=== PATIENT | male | born 1950 | race Caucasian/White ===

== ENCOUNTER 2017-03-10 09:10 | Observation (INO) ==
[2017-03-10] MEDS ORDERED: Aspirin 81 MG TAB.CHEW PO ONE (09:21)
[2017-03-10 09:47] LABS: Basophils # 0.1 K/mcL (0.0-0.2); Basophils % 1.7 %; Eosinophils # 0.7 K/mcL (0.0-0.6); Eosinophils % 9.2 %; Hematocrit 44.9 % (37.5-50.1); Hemoglobin 14.4 g/dL (12.9-16.9); Immature Granulocytes % 0.7 % (0-4); Lymphocytes # 2.1 K/mcL (0.6-4.6); Mean Corpuscular HGB Conc 32.1 g/dL (31.6-35.5); Mean Corpuscular Hemoglobin 27.4 pg (28.0-33.3); Mean Corpuscular Volume 85.5 fL (83.0-100.0); Mean Platelet Volume 8.8 fL (9.4-12.4); Monocytes # 0.5 K/mcL (0.0-1.3); Monocytes % 7.5 %; Neutrophils # 3.7 K/mcL (1.6-8.9); Platelet Count 238 K/mcL (140-400); Red Blood Count 5.25 M/mcL (4.19-5.50); Segmented Neutrophils % 51.9 %
--- NOTE | 2017-03-10 09:49 | Emergency Department Note ---
Disposition Clinical Impression: Unstable angina pectoris Chest pain Qualifiers: Chest pain type: unspecified Qualified Code(s): R07.9 - Chest pain, unspecified Disposition: Admitted As Inpatient Condition: Fair Time of Disposition: : Chest Pain HPI - General Chief Complaint: ED Chest Pain Stated Complaint: C/P Time Seen by Provider: 03/10/17 09:13 Source: patient Mode of arrival: ambulatory Limitations: no limitations Vital Signs Reviewed: Yes Nursing Notes Reviewed: Yes - History of Present Illness HPI Narrative: 67-year-old male presents the ED complaining of chest pain. He states he woke up at approximately 4 AM with this chest pain. He says is minimal left-sided his chest but nonradiating. He says is about a 6 out of 10. Prior to arrival states that the chest pain did go away. He is no longer having chest pain currently in the emergency department. Patient has had a cardiac stent placed in 2011 states when this occurred he was not having chest pain. Having the chest pain really worried on the toilet came in. Patient is a history of hypertension, high cholesterol, hyperlipidemia, diabetes, COPD. Patient is always on 4 L of oxygen and does have a CPAP at home. Patient states he has not had increased shortness of breath or any leg swelling or pain in the legs. He does not have history of DVTs. He is on Plavix. He has had no long car rides or plane rides. No recent surgery or malignancy. Patient states he has been sick to his stomach for the last couple days was had no vomiting. He currently does not have any nausea. He complains of no headache, blurry vision , abnormal shortness of breath, abdominal pain, pain with urination or change in bowel movements. He has no pain or tingling noted on the arms or legs or any numbness. Patient states she has had no fevers. Patient otherwise has no complaints Severity scale (1-10): 0 - Related Data Home Medications Medication Instructions Recorded Confirmed Aspirin [Adult Low Dose Aspirin EC] 81 mg PO DAILY 06/25/15 03/10/17 Cetirizine HCl [Zyrtec] 10 mg PO DAILY 06/25/15 03/10/17 Clopidogrel [Plavix] 75 mg PO DAILY 06/25/15 03/10/17 Doxepin [Sinequan] 25 mg PO HS 06/25/15 03/10/17 Ferrous Sulfate 325 mg PO BID 06/25/15 03/10/17 Melatonin/Pyridoxine HCl (B6) 3 mg PO HS 06/25/15 03/10/17 [Melatonin 3 mg Tablet] Metoprolol Tartrate [Lopressor] 25 mg PO BID 06/25/15 03/10/17 Paroxetine [Paxil] 40 mg PO QAM 06/25/15 03/10/17 Ranitidine HCl [Zantac] 150 mg PO DAILY 06/25/15 03/10/17 Simvastatin [Zocor] 40 mg PO QPM 06/25/15 03/10/17 Tizanidine HCl [Zanaflex] 4 mg PO TID 06/25/15 03/10/17 metFORMIN [Glucophage] 1,000 mg PO BID 06/25/15 03/10/17 Gabapentin [Neurontin] 300 mg PO TID 03/10/17 03/10/17 Glimepiride [Amaryl] 1 mg PO DAILY 03/10/17 03/10/17 Isosorbide MONOnitrate (24 HR) 30 mg PO DAILY 03/10/17 03/10/17 [Imdur] Naproxen [Naprosyn] 250 mg PO BID 03/10/17 03/10/17 Oxygen 4 l .ROUTE AD 03/10/17 03/10/17 rOPINIRole [Requip] 1.5 mg PO HS 03/10/17 03/10/17 Previous Rx's Medication Instructions Recorded Albuterol Sulfate [Albuterol 2 puff IH QID 2 Days inhaler 02/26/16 Inhaler] Allergies Allergy/AdvReac Type Severity Reaction Status Date / Time No Known Allergies Allergy Verified 05/29/15 11:15 Review of Systems: 10 point review of systems done and negative unless otherwise stated in history of present illness. All systems ED: reviewed and negative except as stated. Review of Systems: As Per HPI Chest Pain PMH - Past Medical History Medical history: Reports: COPD, diabetes, hyperlipidemia, hypertension, myocardial infarction, peripheral artery disease Surgical history: Reports: angioplasty/stent, LE stent(s), LE vascular intervention, orthopedic, other, other Psychiatric history: Reports: anxiety - Social History Smoking Status: Never smoker Alcohol use: Reports: none Drug use: Reports: none Physical Exam - General Limitations: no limitations General appearance: alert, in no apparent distress - Head Head exam: atraumatic, normocephalic, normal inspection - Eye Eye exam: Present: normal appearance, PERRL, EOMI - ENT ENT exam: normal exam, normal oropharynx, mucous membranes moist - Neck Neck exam: Present: normal inspection, full ROM, trachea midline - Chest Chest inspection: Present: normal inspection, symmetric chest wall rise - Respiratory Respiratory exam: Present: normal lung sounds bilaterally - Cardiovascular Cardiovascular exam: Present: regular rate, normal rhythm, normal heart sounds. Absent: JVD - Abdominal Exam Abdominal exam: Present: soft, Non-Tender, normal bowel sounds. Absent: distention, guarding, rebound, rigidity - Extremities Exam Extremities exam: Present: normal inspection, full ROM, normal capillary refill. Absent: tenderness, pedal edema, calf tenderness - Back Exam Back exam: Present: normal inspection, full ROM. Absent: tenderness, CVA tenderness (R), CVA tenderness (L) - Neurological Exam Neurological exam: Present: alert, oriented X3 - Skin Skin exam: Present: warm, dry, intact, normal color Course Course Narrative: 67-year-old male presents to the ED with chest pain. Patient does have risk factors and known acute coronary disease with multi vessel disease form a catheterization done in 2015. We will do normal chest pain workup including CBC , BMP, coags, troponin. We will also get a chest x-ray and EKG. Patient took a baby aspirin prior to arrival so we will give him the rest of the full dose aspirin here today. He is not having chest pains will forego giving nitroglycerin at this time. We will place an IV. Most likely disposition will be admission. Patient is okay with this plan. Vital Signs Temperature 97.6 F 03/10/17 09:15 Pulse Rate 62 03/10/17 09:15 Respiratory Rate 18 03/10/17 09:15 Blood Pressure 142/98 03/10/17 09:15 O2 Sat by Pulse Oximetry 96 03/10/17 09:15 Temperature 97.6 F 03/10/17 09:15 Pulse Rate 62 03/10/17 09:15 Respiratory Rate 16 03/10/17 10:53 Blood Pressure 146/89 03/10/17 10:53 O2 Sat by Pulse Oximetry 97 03/10/17 09:24 Oxygen Delivery Oxygen Delivery Nasal Cannula Chest Pain - MDM Narrative Medical decision making narrative: 67-year-old male with chest pain and history of ACS had a stent in 2012 and a cardiac catheterization with no stent placed in 2015. There was noticeable 30- 40% blockages based on that report. Patient does have chest pain today but did not have anemia in the emergency department. He is on Plavix. There was no signs of pulmonary embolism or DVT with no risk factors. He does have a history of COPD and is always on 4 L of oxygen via nasal cannula. He states he has no shortness of breath no changes in that. He does not have pain radiating to the arms or any nausea or vomiting. It is only located in the chest that has since gone away. We did give him a full dose aspirin while here. He was not having chest pain so we did not give him any nitroglycerin. With patient's known cardiac disease we felt that he warranted admission for a cardiac evaluation. Basic lab work do not show any abnormalities he did have a negative troponin. Chest x-ray was normal showing no acute findings. His EKG also had no acute findings. There was signs of an old myocardial infarction and inferior which is known. This is also on the old EKG. Spoke with the hospitalist Dr. Anaya who agreed to accept the patient. Patient is being admitted for cardiac evaluation a chest pain workup. Patient is admitted to hospital service in stable condition. - Medical Records Medical records reviewed: Yes I reviewed the patient's medical records. - Lab Data Lab results reviewed: Yes I reviewed the patient's lab results. Result diagrams: 03/10/17 09:34 03/10/17 09:34 Lab Results 03/10/17 03/10/17 03/10/17 Range/Units 09:34 09:34 09:34 WBC 7.1 (4.3-11.1) K/mcL RBC 5.25 (4.19-5.50) M/mcL Hgb 14.4 (12.9-16.9) g/dL Hct 44.9 (37.5-50.1) % MCV 85.5 (83.0-100.0) fL MCH 27.4 L (28.0-33.3) pg MCHC 32.1 (31.6-35.5) g/dL RDW 14.0 (11.5-14.5) % Plt Count 238 (140-400) K/mcL MPV 8.8 L (9.4-12.4) fL Immature Gran % 0.7 (0-4) % Seg Neutrophils % 51.9 % Lymphocytes % 29.0 % Monocytes % 7.5 % Eosinophils % 9.2 % Basophils % 1.7 % Neutrophils # 3.7 (1.6-8.9) K/mcL Lymphocytes # 2.1 (0.6-4.6) K/mcL Monocytes # 0.5 (0.0-1.3) K/mcL Eosinophils # 0.7 H (0.0-0.6) K/mcL Basophils # 0.1 (0.0-0.2) K/mcL PT 11.4 (9.4-12.1) Seconds INR 1.1 APTT 31.4 (26.0-36.0) Seconds Sodium (136-145) mEq/L Potassium (3.5-4.5) mEq/L Chloride (98-109) mEq/L Carbon Dioxide (19-29) mEq/L BUN (8-26) mg/dL Creatinine (0.72-1.25) mg/dL Est GFR ( Amer) (> 60) Est GFR (Non-Af Amer) (> 60) BUN/Creatinine Ratio (6-26) Glucose (70-99) mg/dL Calculated Osmolality (280-300) Calcium (8.6-10.8) mg/dL Troponin I (0-0.03) ng/mL B-Natriuretic Peptide 27 (0-100) pg/mL 03/10/17 03/10/17 Range/Units 09:34 09:34 WBC (4.3-11.1) K/mcL RBC (4.19-5.50) M/mcL Hgb (12.9-16.9) g/dL Hct (37.5-50.1) % MCV (83.0-100.0) fL MCH (28.0-33.3) pg MCHC (31.6-35.5) g/dL RDW (11.5-14.5) % Plt Count (140-400) K/mcL MPV (9.4-12.4) fL Immature Gran % (0-4) % Seg Neutrophils % % Lymphocytes % % Monocytes % % Eosinophils % % Basophils % % Neutrophils # (1.6-8.9) K/mcL Lymphocytes # (0.6-4.6) K/mcL Monocytes # (0.0-1.3) K/mcL Eosinophils # (0.0-0.6) K/mcL Basophils # (0.0-0.2) K/mcL PT (9.4-12.1) Seconds INR APTT (26.0-36.0) Seconds Sodium 139 (136-145) mEq/L Potassium 4.3 (3.5-4.5) mEq/L Chloride 103 (98-109) mEq/L Carbon Dioxide 28 (19-29) mEq/L BUN 10 (8-26) mg/dL Creatinine 0.92 (0.72-1.25) mg/dL Est GFR ( Amer) > 60 (> 60) Est GFR (Non-Af Amer) > 60 (> 60) BUN/Creatinine Ratio 11 (6-26) Glucose 102 H (70-99) mg/dL Calculated Osmolality 287 (280-300) Calcium 9.3 (8.6-10.8) mg/dL Troponin I 0.01 (0-0.03) ng/mL B-Natriuretic Peptide (0-100) pg/mL - Radiology Data Radiology results reviewed: Yes I reviewed the patient's radiology results. - EKG Data EKG attestation: Yes I reviewed and interpreted this EKG. EKG results narrative: EKG done at 01 14 review myself and the attending shows normal sinus rhythm at a rate of 60, TN interval 181, QRS 92, QTC 426 with a normal axis. There are Q waves in leads 23 and aVF of note from his prior inferior UT he had in 2011 that are no acute ST changes, no acute T-wave changes. No signs of any hypertrophy or heart strain. No signs of any heart block. No signs of WPW/ Brugada syndrome. This compared with an old EKG done 06/25/16 shows normal sinus rhythm with no acute changes he did also have the Q waves in II, III, and F aVF and this EKG as well. Heart Score - Score History: Moderately Suspicious EKG: Normal Age: 45-65 Risk Factors: Equal/Greater than 3 risk factor or history of atherosclerotic disease Troponin: Less than normal limit HEART Score Total: 4 Attestation Statement - Attestation Attestation: I examined this patient and my medical decision-making was reviewed with the Resident Physician, Dr. Low. I agree with the documented findings, disposition and treatment plan as described except to the extent set forth below. History this 67-year-old white male with a history of known CAD, last heart catheter was in 2014 in which she had multivessel disease but no acute intervention was performed. Patient presents today brought by his to the emergency department for chest pain that began when he awoke today around 4 AM. Patient's pain was left-sided nonradiating with no associated symptoms and lasted for approximately 5 hours and then spontaneously resolved. When asking the patient if he has been feeling okay he states yes and then his shakes her head no when states that over the past 7-10 days he has been having an increase in productive cough with change in sputum, intermittent fevers and chills associated with diaphoresis. Patient denies any episodes of chest pain pressure or heaviness during the spells over the past 7-10 days and insists this morning's episode was the first experience of any chest pain. Patient denies any lightheadedness or syncope. No increased work of breathing this morning on initial assessment patient's on 2 L nasal cannula oxygen and in no acute distress no signs of respiratory distress or increased work of breathing. Sats are 96%. Patient does not feel that he has been utilizing his inhalers more frequently or requiring increased oxygen at home. Patient has had no posttussive emesis or nausea vomiting associated with these symptoms. The patient's physical exam he did have faint end expiratory wheezing in the bases on auscultation. No lower examinee edema. I agree with the remainder of physical exam as documented by Dr. Low. Since vital signs are stable on arrival. He was placed on bus monitor continuous pulse ox labs are drawn and sent portal chest x-ray was obtained and EKG was performed. EKG shows old inferior changes but nothing acute today with a normal sinus rhythm. Patient is pain-free at this time and will receive aspirin therapy. Labs at this time are pending chest x-ray is unremarkable and is negative for any infiltrates or evidence of edema. Plan at this time will be to admit the patient for unstable angina for further evaluation and management. Case will be discussed with the hospitalist upon completion of laboratory values. Patient's labs are all within normal limits. He remains chest pain-free with stable vital signs at this time. Case was discussed with the hospitalist who accepted the patient for admission for further evaluation and management.
[2017-03-10 09:51] LABS: INR 1.1; Prothrombin Time 11.4 Seconds (9.4-12.1)
[2017-03-10 09:54] LABS: Activated Partial Thrombo Time 31.4 Seconds (26.0-36.0)
[2017-03-10 10:00] LABS: BUN/Creatinine Ratio 11 (6-26); Blood Urea Nitrogen 10 mg/dL (8-26); Calcium 9.3 mg/dL (8.6-10.8); Carbon Dioxide 28 mEq/L (19-29); Chloride 103 mEq/L (98-109); Glucose 102 mg/dL (70-99); Osmolality,Calculated 287 (280-300); Potassium 4.3 mEq/L (3.5-4.5); Sodium 139 mEq/L (136-145); eGFR For African Americans > 60 (> 60); eGFR For Non-African Americans > 60 (> 60)
--- NOTE | 2017-03-10 10:52 | Internal Med History&Physical ---
Date of Encounter: 03/10/17 Time of Encounter: 10:50 Assessment and Plan (1) Chest pain Current visit: No Status: Acute 67/male Admitted with typical anginal chest pain. Heart score: 4 Previous history of stent in 2009. Plan: Admit as observation. Aspirin, simvastatin, Plavix, isosorbide dinitrate, metoprolol Echocardiogram Serial troponins. If the serial troponins are negative and echocardiogram is within normal limits then please consider pharmacological stress test. At the time of examination patient is chest pain-free I examined this patient in the emergency room #22. Patient's is at bedside. I have answered all of their questions during my conversation with them. Patient or his does not have any questions, concerns, update or recommendation at the time of completion of my interview. Qualifiers: Chest pain type: unspecified Qualified Code(s): R07.9 - Chest pain, unspecified (2) Diabetes Current visit: No Status: Acute sub cut insulin set Qualifiers: Diabetes mellitus type: type 2 Diabetes mellitus complication status: without complication Diabetes mellitus manager long term care insulin use: unspecified senior care insulin use status Qualified Code(s): E11.9 - Type 2 diabetes mellitus without complications (3) Dyslipidemia Current visit: No Status: Chronic on statin (4) DVT prophylaxis Current visit: No Status: Acute Heparin Medical decision making: This patient has a [id number] risk of persistent in spite of being on appropriate medication due to the underlying complex comorbid conditions. Internal Medicine - H&P: HPI Chief complaint: Chest pain Admitted From: Emergency Dept Plans for Post Hospital Care: Home History of present illness: PCP: Dr. Guthrie from [facility]. Cardiology: Dr. Alex Figueroa. Brief past medical history: Diabetes, hypertension, dyslipidemia, coronary artery disease, peripheral artery disease, mild obesity. History of present medical illness: Patient was experiencing excruciating chest pain around 1 AM this morning. The pain started at the left precordial region it was radiating to the left arm and it was sharp in nature. Patient feels that there was a pressure-like sensation which was ongoing for last 3 days. Patient's was concerned for his symptoms and she decided to bring patient to the hospital for further evaluation. Patient also had occasional nausea. Patient denies any shortness of breath, abdominal pain, dizziness and diarrhea or constipation. Workup in the emergency department: Patient was evaluated in the emergency department. He underwent basic lab draw. Chest x-ray was done. First set of troponin was negative. EKG was within normal limits. Reason for admission: Heart score 4. Chest pain to rule out ACS. Family history: Noncontributory Past Med Surg Social Fam HX - Past Medical History Medical history: COPD, diabetes, hyperlipidemia, hypertension, myocardial infarction, peripheral artery disease Psychiatric history: anxiety - Past Surgical History Surgical History: angioplasty/stent, LE stent(s), LE vascular intervention, orthopedic, other, other - Social History Smoking Status: Never smoker Smokeless Tobacco Status: No Alcohol use: none Drug use: none - Family History Mother Family Member Ethnicity: Non- Hx Family Endocrine Disorder: Yes (Diabeties) Internal Medicine - H&P: Meds Aspirin [Adult Low Dose Aspirin EC] 81 mg PO DAILY 06/25/15 [History] Cetirizine HCl [Zyrtec] 10 mg PO DAILY 06/25/15 [History] Clopidogrel [Plavix] 75 mg PO DAILY 06/25/15 [History] Doxepin [Sinequan] 25 mg PO HS 06/25/15 [History] Ferrous Sulfate 325 mg PO BID 06/25/15 [History] Melatonin/Pyridoxine HCl (B6) [Melatonin 3 mg Tablet] 3 mg PO HS 06/25/15 [ History] Metoprolol Tartrate [Lopressor] 25 mg PO BID 06/25/15 [History] Paroxetine [Paxil] 40 mg PO QAM 06/25/15 [History] Ranitidine HCl [Zantac] 150 mg PO DAILY 06/25/15 [History] Simvastatin [Zocor] 40 mg PO QPM 06/25/15 [History] Tizanidine HCl [Zanaflex] 4 mg PO TID 06/25/15 [History] metFORMIN [Glucophage] 1,000 mg PO BID 06/25/15 [History] Albuterol Sulfate [Albuterol Inhaler] 2 puff IH QID 2 Days inhaler 02/26/16 [Rx ] Gabapentin [Neurontin] 300 mg PO TID 03/10/17 [History] Glimepiride [Amaryl] 1 mg PO DAILY 03/10/17 [History] Isosorbide MONOnitrate (24 HR) [Imdur] 30 mg PO DAILY 03/10/17 [History] Naproxen [Naprosyn] 250 mg PO BID 03/10/17 [History] Oxygen 4 l .ROUTE AD 03/10/17 [History] rOPINIRole [Requip] 1.5 mg PO HS 03/10/17 [History] 3 Allergy/AdvReac Type Severity Reaction Status Date / Time No Known Allergies Allergy Verified 05/29/15 11:15 All Systems PM: A 10-system review of systems was performed and is negative for pertinent findings except as documented above in the HPI. - Constitutional Constitutional: no chills, no fever(s), no night sweats - EENT Eyes: no change in vision, no discharge, no pain, no photophobia Ears: no ear discharge, no ear pain, no tinnitus Nose, mouth and throat: no dysphagia, no nasal discharge, no neck pain, no sore throat - Cardiovascular Cardiovascular ROS IM: chest pain, diaphoresis, lightheadedness, no dyspnea, no palpitations, no syncope - Respiratory Respiratory: no cough, no dyspnea, no wheezing, no excessive phlegm production - Gastrointestinal Gastrointestinal: no abdominal pain, no diarrhea, no hematemesis, no hematochezia, no melena, no nausea, no vomiting - Musculoskeletal Musculoskeletal ROS IM: no numbness, no tingling - Integumentary Integumentary IM: no rash, no unusual bruising - Neurological Neurological ROS: no confusion, no convulsions, no focal weakness, no numbness, no tingling, no tremor(s) - Hematologic/Lymphatic Hematologic/Lymphatic: no easy bruising - Constitutional Vitals: Temp Pulse Resp BP Pulse Ox 97.6 F 62 18 142/98 97 03/10/17 09:15 03/10/17 09:15 03/10/17 09:15 03/10/17 09:15 03/10/17 09:24 General appearance: Present: A&O X 3, pleasant, no acute distress, answers questions appropriately - Head Head exam: Present: atraumatic, normocephalic - Eye Eye exam: Present: PERRL, conjuntiva pink, sclera anicteric Pupils: Present: PERRL - Neck Neck exam general surgery: Present: supple, trachea midline. Absent: lymphadenopathy - Respiratory Respiratory exam: Present: CTAB. Absent: accessory muscle use, rales, rhonchi, wheezes - Cardiovascular Cardiovascular exam: Present: RRR, +S1, +S2. Absent: diastolic murmur, gallop, rubs, systolic murmur - GI/Abdominal GI/Abdominal exam: Present: normal bowel sounds, soft, no peritoneal signs. Absent: distended, tenderness - Extremities Exam Extremities exam: Present: warm, radial pulses palpable and symmetrical. Absent : calf tenderness, cyanotic, pedal edema - Neurological Exam Neurological exam: Present: CN II-XII intact, oriented X3, no focal deficits. Absent: pronater drift, facial droop, speech deficit - Skin Skin exam: Present: dry, intact Internal Med - H&P Results - Labs CBC & Chem 7: 03/10/17 09:34 03/10/17 09:34
[2017-03-10] MEDS ORDERED: Acetaminophen 325 MG TABLET PO PRN (10:53)
[2017-03-10] MEDS ORDERED: Naloxone 0.4 MG/ML INJ IVP PRN (10:53)
[2017-03-10] MEDS ORDERED: Mag Hydrox/Al Hydrox/Simeth 30 ML UDC PO PRN (10:53)
[2017-03-10] MEDS ORDERED: NON-FORMULARY MEDICATION 1 EACH EACH (Oxygen [Oxygen] 4 L) SCH (11:00)
[2017-03-10] MEDS ORDERED: D5% in Water 1,000 ML IVC PRN (11:10)
[2017-03-10] MEDS ORDERED: Dextrose Gel 15 GM PO PRN ×2 (11:10)
[2017-03-10] MEDS ORDERED: *HR* Dextrose 50 % in Water (Syg) 50 ML SYRINGE IVP PRN (11:10)
[2017-03-10] MEDS: Insulin LISPRO 300 UNITS/3 ML VIAL SQ SCH ×3 (13:06→20:46)
[2017-03-10] MEDS: Gabapentin 300 MG CAPSULE PO SCH ×2 (15:28→20:50)
[2017-03-10] MEDS: tiZANidine 4 MG TABLET PO SCH ×2 (15:28→20:49)
[2017-03-10] MEDS: rOPINIRole 1 MG TABLET PO SCH (20:49)
[2017-03-10] MEDS ORDERED: Insulin LISPRO 300 UNITS/3 ML VIAL SQ SCH (21:00)
[2017-03-11 04:11] LABS: Basophils # 0.1 K/mcL (0.0-0.2); Basophils % 1.6 %; Eosinophils # 0.5 K/mcL (0.0-0.6); Eosinophils % 8.1 %; Hematocrit 41.1 % (37.5-50.1); Hemoglobin 13.1 g/dL (12.9-16.9); Immature Granulocytes % 0.6 % (0-4); Lymphocytes # 2.1 K/mcL (0.6-4.6); Lymphocytes % 33.6 %; Mean Corpuscular HGB Conc 31.9 g/dL (31.6-35.5); Mean Corpuscular Volume 84.7 fL (83.0-100.0); Mean Platelet Volume 8.7 fL (9.4-12.4); Monocytes # 0.6 K/mcL (0.0-1.3); Monocytes % 8.7 %; Platelet Count 194 K/mcL (140-400); Red Blood Count 4.85 M/mcL (4.19-5.50); Red Cell Distribution Width 13.9 % (11.5-14.5); Segmented Neutrophils % 47.4 %
[2017-03-11 04:20] LABS: INR 1.1; Prothrombin Time 11.8 Seconds (9.4-12.1)
[2017-03-11 04:22] LABS: Activated Partial Thrombo Time 28.8 Seconds (26.0-36.0)
[2017-03-11 04:36] LABS: Alanine Aminotransferase 38 Units/L (0-55); Albumin 3.2 g/dL (3.5-5.0); Albumin/Globulin Ratio 0.9 (1.1-2.2); Alkaline Phosphatase 62 Units/L (38-126); Aspartate Amino Transferase 44 Units/L (5-34); BUN/Creatinine Ratio 12 (6-26); Bilirubin,Total 0.8 mg/dL (0.2-1.2); Blood Urea Nitrogen 13 mg/dL (8-26); Calcium 9.3 mg/dL (8.6-10.8); Carbon Dioxide 28 mEq/L (19-29); Chloride 102 mEq/L (98-109); Chol/HDL Ratio 4.6 (0-4.9); Cholesterol 125 mg/dL (< 200); Globulin 3.4 g/dL (2.4-3.5); Glucose 124 mg/dL (70-99); HDL Cholesterol 27 mg/dL (40-59); LDL Cholesterol,Calculated 63 mg/dL (0-99); Magnesium 2.1 mg/dL (1.6-2.6); Osmolality,Calculated 286 (280-300); Phosphorous 3.5 mg/dL (2.3-4.7); Potassium 4.3 mEq/L (3.5-4.5); Sodium 137 mEq/L (136-145); Total Protein 6.6 g/dL (6.0-8.3); Triglycerides 174 mg/dL (< 150); eGFR For African Americans > 60 (> 60); eGFR For Non-African Americans > 60 (> 60)
[2017-03-11] MEDS: Insulin LISPRO 300 UNITS/3 ML VIAL SQ SCH ×4 (08:08→22:23)
[2017-03-11] MEDS: Aspirin Enteric Coated 81 MG Tablet PO SCH (10:30)
[2017-03-11] MEDS: *HR* Glimepiride 2 MG TABLET PO SCH (10:30)
[2017-03-11] MEDS: tiZANidine 4 MG TABLET PO SCH ×3 (10:30→22:25)
[2017-03-11] MEDS: Gabapentin 300 MG CAPSULE PO SCH ×3 (10:31→22:25)
[2017-03-11] MEDS: Isosorbide MONOnitrate (24 HR) 30 MG TAB.ER.24H PO SCH (10:31)
--- NOTE | 2017-03-11 14:55 | Internal Med Progress Note ---
Date of Encounter: 03/11/17 Time of Encounter: 14:53 - Assessment and plan (1) Chest pain Current Visit: Yes Status: Acute Qualifiers: Chest pain type: unspecified Qualified Code(s): R07.9 - Chest pain, unspecified (2) Hypertension Current Visit: Yes Status: Acute Qualifiers: Hypertension type: essential hypertension Qualified Code(s): I10 - Essential (primary) hypertension (3) Coronary artery disease Current Visit: Yes Status: Acute Qualifiers: Coronary Disease-Associated Artery/Lesion type: [place] artery [place] vs. transplanted heart: [place] heart Associated angina: with stable angina Qualified Code(s): I25.118 - Atherosclerotic heart disease of [place] coronary artery with other forms of angina pectoris (4) Diabetes Current Visit: Yes Status: Acute Qualifiers: Diabetes mellitus type: type 2 Diabetes mellitus complication status: without complication Diabetes mellitus penitentiary insulin use: unspecified penitentiary insulin use status Qualified Code(s): E11.9 - Type 2 diabetes mellitus without complications (5) Dyslipidemia Current Visit: No Status: Chronic - Subjective Interval history: Admitted for chest pain which lasted for 20 minutes and resolved with rest. Patient has history of coronary artery disease PTCA in the past as well as her for vascular disease with stents. Patient is diabetic with history of hypertension dyslipidemia and COPD. Patient has been ruled out for [place] with a negative cardiac enzymes. Considering risk factors and presence of previous coronary artery disease and also due to the fact that for last several years patient did not have any stress test or cardiac catheter will schedule him for a stress test for risk stratification. Lipid profile reviewed as well as labs. Patient is hemodynamically stable. She does currently on beta massiel and aspirin. Accu-Chek 4 times a day with sliding scale coverage on daily basis and resume home medication. - Constitutional Vitals: Temp Pulse Resp BP Pulse Ox 97.6 F 66 16 134/83 92 03/11/17 07:05 03/11/17 11:26 03/11/17 11:26 03/11/17 11:26 03/11/17 11:26 General appearance: Present: A&O X 3, pleasant, no acute distress, answers questions appropriately - Head Head exam: Present: atraumatic, normocephalic - Eye Eye exam: Present: PERRL, conjuntiva pink, sclera anicteric Pupils: Present: PERRL - Neck Neck exam general surgery: Present: supple, trachea midline. Absent: lymphadenopathy - Respiratory Respiratory exam: Present: CTAB. Absent: accessory muscle use, rales, rhonchi, wheezes - Cardiovascular Cardiovascular exam: Present: RRR, +S1, +S2. Absent: diastolic murmur, gallop, rubs, systolic murmur - GI/Abdominal GI/Abdominal exam: Present: normal bowel sounds, soft, no peritoneal signs. Absent: distended, tenderness - Extremities Exam Extremities exam: Present: warm, radial pulses palpable and symmetrical. Absent : calf tenderness, cyanotic, pedal edema - Neurological Exam Neurological exam: Present: CN II-XII intact, oriented X3, no focal deficits. Absent: pronater drift, facial droop, speech deficit - Skin Skin exam: Present: dry, intact Internal Medicine: Result - Labs CBC & Chem 7: 03/11/17 03:57 03/11/17 03:57 Labs: Short CBC 03/11/17 Range/Units 03:57 WBC 6.3 (4.3-11.1) K/mcL Hgb 13.1 (12.9-16.9) g/dL Hct 41.1 (37.5-50.1) % Plt Count 194 (140-400) K/mcL Neutrophils # 3.0 (1.6-8.9) K/mcL BMP 03/11/17 03:57 Sodium 137 Potassium 4.3 Chloride 102 Carbon Dioxide 28 BUN 13 Creatinine 1.10 Glucose 124 H Calcium 9.3 Cardiac Enzymes 03/10/17 03/10/17 03/11/17 Range/Units 15:53 21:21 03:57 Troponin I 0.01 0.00 0.01 (0-0.03) ng/mL Liver Function 03/11/17 Range/Units 03:57 Total Bilirubin 0.8 (0.2-1.2) mg/dL AST 44 H (5-34) Units/L ALT 38 (0-55) Units/L Alkaline Phosphatase 62 (38-126) Units/L Albumin 3.2 L (3.5-5.0) g/dL - ABG Interpretation ABG results: PT/INR, D-dimer PT 11.8 Seconds (9.4-12.1) 03/11/17 03:57 Consult Discharge Plan - Plan [facility] [place] -
--- NOTE | 2017-03-11 17:58 | Electrocardiograph Report ---
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
[2017-03-11] MEDS: rOPINIRole 1 MG TABLET PO SCH (22:25)
--- NOTE | 2017-03-12 07:33 | Discharge Summary ---
Date of Encounter: 03/12/17 Time of Encounter: 07:25 - Discharge Diagnosis (1) Chest pain Priority: Primary Status: Acute Qualifiers: Chest pain type: unspecified Qualified Code(s): R07.9 - Chest pain, unspecified (2) Hypertension Priority: Secondary Status: Acute Qualifiers: Hypertension type: essential hypertension Qualified Code(s): I10 - Essential (primary) hypertension (3) Coronary artery disease Priority: Secondary Status: Acute Qualifiers: Coronary Disease-Associated Artery/Lesion type: [place] artery [place] vs. 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 prison insulin use status Qualified Code(s): E11.9 - Type 2 diabetes mellitus without complications (5) Dyslipidemia Priority: Secondary Status: Chronic - Discharge Medications Prescriptions: Nitroglycerin 0.4 mg SL Q5MIN PRN #40 tab.subl PRN Reason: Chest Pain Omeprazole Magnesium [Prilosec Otc] 20 mg PO DAILY #30 tablet.dr Home Medications: Aspirin [Adult Low Dose Aspirin EC] 81 mg PO DAILY 06/25/15 [History] Cetirizine HCl [Zyrtec] 10 mg PO DAILY 06/25/15 [History] Clopidogrel [Plavix] 75 mg PO DAILY 06/25/15 [History] Doxepin [Sinequan] 25 mg PO HS 06/25/15 [History] Ferrous Sulfate 325 mg PO BID 06/25/15 [History] Melatonin/Pyridoxine HCl (B6) [Melatonin 3 mg Tablet] 3 mg PO HS 06/25/15 [ History] Metoprolol Tartrate [Lopressor] 25 mg PO BID 06/25/15 [History] Paroxetine [Paxil] 40 mg PO QAM 06/25/15 [History] Simvastatin [Zocor] 40 mg PO QPM 06/25/15 [History] Tizanidine HCl [Zanaflex] 4 mg PO TID 06/25/15 [History] metFORMIN [Glucophage] 1,000 mg PO BID 06/25/15 [History] Albuterol Sulfate [Albuterol Inhaler] 2 puff IH QID 2 Days inhaler 02/26/16 [Rx ] Gabapentin [Neurontin] 300 mg PO TID 03/10/17 [History] Glimepiride [Amaryl] 1 mg PO DAILY 03/10/17 [History] Isosorbide MONOnitrate (24 HR) [Imdur] 30 mg PO DAILY 03/10/17 [History] Oxygen 4 l .ROUTE AD 03/10/17 [History] rOPINIRole [Requip] 1.5 mg PO HS 03/10/17 [History] Nitroglycerin 0.4 mg SL Q5MIN PRN #40 tab.subl 03/12/17 [Rx] Omeprazole Magnesium [Prilosec Otc] 20 mg PO DAILY #30 tablet.dr 03/12/17 [Rx] Allergies/Adverse Reactions: 3 Allergy/AdvReac Type Severity Reaction Status Date / Time No Known Allergies Allergy Verified 05/29/15 11:15 Procedures/tests Complete & Pending: Procedures Performed prior 72 hours Category Date Time Status NM irving perf SPECT multi [NM] Routine Exams 03/11/17 14:51 Ordered EV echocardiogram Routine Y 03/11/17 10:59 Completed SP exercise nuclear stress Routine Y 03/12/17 07:00 Ordered Date of admission: 03/10/17 10:26 Primary care physician: Alex Guthrie MD Discharging clinician: Tres Morton Anticipated date of discharge: 03/12/17 - Patient Status Disposition: Home, Self-Care Condition: Fair Functional capacity at discharge: independent ambulation Overall status at discharge: patient is progressing back to baseline - Discharge Instructions Follow Up With: Aelx Guthrie MD [Primary Care Provider] - - Diet and Activity Activity: resume usual activities as tolerated Diet: advance to your usual diet Hospital course: Mr. Galdamez is a 67 year old male Admitted for chest pain which lasted for 20 minutes and resolved with rest. Patient has history of coronary artery disease PTCA in the past as well as her for vascular disease with stents. Patient is diabetic with history of hypertension dyslipidemia and COPD. Patient has been ruled out for [place] with a negative cardiac enzymes. Considering risk factors and presence of previous coronary artery disease and also due to the fact that for last several years patient did not have any stress test or cardiac catheter as stress test as scheduled and patient will be discharged if his stress test is negative.. Lipid profile reviewed as well as labs. Patient is hemodynamically stable. - Time Spent with Patient Total time spent providing and/or coordinating discharge services: Greater than 30 minutes - Constitutional Vitals: Temp Pulse Resp BP Pulse Ox 97.4 F L 64 17 116/74 94 03/12/17 03:55 03/12/17 03:55 03/12/17 03:55 03/12/17 03:55 03/12/17 03:55 General appearance: Present: A&O X 3, pleasant, no acute distress, answers questions appropriately - Head Head exam: Present: atraumatic, normocephalic - Eye Eye exam: Present: PERRL, conjuntiva pink, sclera anicteric Pupils: Present: PERRL - Neck Neck exam general surgery: Present: supple, trachea midline. Absent: lymphadenopathy - Respiratory Respiratory exam: Present: CTAB. Absent: accessory muscle use, rales, rhonchi, wheezes - Cardiovascular Cardiovascular exam: Present: RRR, +S1, +S2. Absent: diastolic murmur, gallop, rubs, systolic murmur - GI/Abdominal GI/Abdominal exam: Present: normal bowel sounds, soft, no peritoneal signs. Absent: distended, tenderness - Extremities Exam Extremities exam: Present: warm, radial pulses palpable and symmetrical. Absent : calf tenderness, cyanotic, pedal edema - Neurological Exam Neurological exam: Present: CN II-XII intact, oriented X3, no focal deficits. Absent: pronater drift, facial droop, speech deficit - Skin Skin exam: Present: dry, intact
[2017-03-12] MEDS ORDERED: Nitroglycerin 0.4 MG TAB.SUBL SL PRN (07:34)
[2017-03-12] MEDS ORDERED: Regadenoson 0.4 MG/5 ML SYRINGE IVP ONE (07:42)
[2017-03-12] MEDS: Insulin LISPRO 300 UNITS/3 ML VIAL SQ SCH ×4 (08:38→22:05)
[2017-03-12] MEDS: *HR* Glimepiride 2 MG TABLET PO SCH (10:01)
[2017-03-12] MEDS: Isosorbide MONOnitrate (24 HR) 30 MG TAB.ER.24H PO SCH (10:01)
[2017-03-12] MEDS: Aspirin Enteric Coated 81 MG Tablet PO SCH (10:01)
[2017-03-12] MEDS: Gabapentin 300 MG CAPSULE PO SCH ×3 (10:01→22:05)
[2017-03-12] MEDS: tiZANidine 4 MG TABLET PO SCH ×3 (10:01→22:06)
[2017-03-12] MEDS: rOPINIRole 1 MG TABLET PO SCH (22:06)
[2017-03-13] MEDS: Insulin LISPRO 300 UNITS/3 ML VIAL SQ SCH ×3 (08:30→16:44)
[2017-03-13] MEDS: Aspirin Enteric Coated 81 MG Tablet PO SCH (08:30)
[2017-03-13] MEDS: Gabapentin 300 MG CAPSULE PO SCH ×2 (08:31→15:18)
[2017-03-13] MEDS: *HR* Glimepiride 2 MG TABLET PO SCH (08:31)
[2017-03-13] MEDS: tiZANidine 4 MG TABLET PO SCH ×2 (08:31→15:18)
[2017-03-13] MEDS: Isosorbide MONOnitrate (24 HR) 30 MG TAB.ER.24H PO SCH (08:31)
--- NOTE | 2017-03-13 11:16 | Cardiology Consult Note ---
<Ildefonso Mccall - Last Filed: 03/13/17 11:53> Date of Encounter: 03/13/17 Time of Encounter: 11:13 Assessment and Plan (1) Chest pain Status: Acute Chest pain has resolved prior to admission. EKG review shows no new ischemic changes Trop neg x4 CXR neg ECHO: EF 65%, normal LV and RV, normal atria, trace AR and TR and mild calcified aortic valve leaflets Nuclear stress test: Gated EF 61% with medium size, mild intensity mostly reversible inferior and inferolateral defect and thus cardiology was consulted. -Compared to previous nuclear stress test prior to last [facility], there appears to be the same defect. 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 Bagley to discuss the possibility of increasing Imdur to 60mg today Recommend followup with Dr. Robertson to discuss medication regimen adjustment if indicated at that time. Otherwise, continue ASA, Statin, Plavix, Lopressor, Imdur. Qualifiers: Chest pain type: unspecified Qualified Code(s): R07.9 - Chest pain, unspecified (2) Abnormal nuclear stress test Status: Acute See above. (3) Coronary artery disease Status: Chronic [facility] medical therapy. See above. Qualifiers: Coronary Disease-Associated Artery/Lesion type: [place] artery [place] vs. transplanted heart: [place] heart Associated angina: with stable angina Qualified Code(s): I25.118 - Atherosclerotic heart disease of [place] coronary artery with other forms of angina pectoris (4) Hypertension Status: Chronic Stable at this time. Qualifiers: Hypertension type: essential hypertension Qualified Code(s): I10 - Essential (primary) hypertension (5) Dyslipidemia Status: Chronic Continue statin therapy. (6) Obesity (BMI 30-39.9) Status: Chronic Discussion w patient/family: The assessment and plan as outlined above was discussed with the patient and/or family members who expressed understanding and agreement. All questions were answered. Thank you for involving us in the care of your patient. Please call with any questions. History of Present Illness Consult date: 03/13/17 Chief complaint: chest pain, abnormal nuclear stress test History of present illness: Mr. Galdamez is a very pleasant 67 year old male with a past medical history of COPD, DM, HTN, Hyperlipidemia, CAD, PAD and Obesity who presented to the [facility] ED with a chief complaint of chest pain over the weekend. He reports the pain is sharp in nature, lasted approximately 20 minutes and did not take any Nitro for this complaint. Patient had underwent two previous heart catherizations ( 2014 and 2011) and states the pain is different from previous events. The pain is non-radiating and started abruptly in the morning after walking from bed to his couch and felt the pain while sitting. On arrival to the ED, trop neg x4, no ischemic changes on EKG, CXR neg and he was subsequently admitted via the hospitalist service to rule out ACS. ECHO was ordered and found EF 65%, normal LV and RV, normal atria, trace AR and TR and mild calcified aortic valve leaflets. Nuclear stress test 2 day study demonstrated Gated EF 61% with medium size, mild intensity mostly reversible inferior and inferolateral defect and thus cardiology was consulted. 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 Patient states his first stent was placed in October 2011. He reports occasional EtOH in the past, quit smoking 6 years ago but previously had 1PPD for 39 years. Mother had [place] before 65 y/o, Father was 62 y/o with [place] and brother had [place] at age 54. We will continue to follow and offer further recommendations and interventions if indicated. Past Med Surg Social Fam HX - Past Medical History Medical history: COPD, diabetes, hyperlipidemia, hypertension, myocardial infarction, peripheral artery disease Psychiatric history: anxiety - Past Surgical History Surgical History: angioplasty/stent, LE stent(s), LE vascular intervention, orthopedic, other, other - Social History Smoking Status: Former smoker Smokeless Tobacco Status: No Alcohol use: none Drug use: none - Family History Father Living Status: Age at : 83 Cause of : old age Hx Family Cardiac Disorders: Yes (heart disease, tripple bypass,) Hx Family Respiratory Disorders: No Hx Family Cancer: No Hx Family GI Disorders: No Hx Family Genitourinary Disorders: No Hx Family Endocrine Disorder: Yes (DM) Hx Family Musculoskeletal Disorders: No Hx Family Neuromuscular Disorders: No Hx Family Neurologic Disorders: No Hx Family HEENT Disorders: No Hx Family Autoimmune Disorders: No Hx Family Reproductive Disorders: No Hx Family Psychosocial Disorders: No Hx Family Medical Disorders: No Mother Family Member Ethnicity: Non- Living Status: Age at : 76 Cause of : unknown Hx Family Cardiac Disorders: Yes (CVA, heart disease) Hx Family Respiratory Disorders: No Hx Family Cancer: No Hx Family GI Disorders: No Hx Family Genitourinary Disorders: No Hx Family Endocrine Disorder: Yes (DM) Hx Family Musculoskeletal Disorders: No Hx Family Neuromuscular Disorders: No Hx Family Neurologic Disorders: No Hx Family HEENT Disorders: No Hx Family Autoimmune Disorders: No Hx Family Reproductive Disorders: No Hx Family Psychosocial Disorders: No Hx Family Medical Disorders: No Medications and Allergies Aspirin [Adult Low Dose Aspirin EC] 81 mg PO DAILY 06/25/15 [History] Cetirizine HCl [Zyrtec] 10 mg PO DAILY 06/25/15 [History] Clopidogrel [Plavix] 75 mg PO DAILY 06/25/15 [History] Doxepin [Sinequan] 25 mg PO HS 06/25/15 [History] Ferrous Sulfate 325 mg PO BID 06/25/15 [History] Melatonin/Pyridoxine HCl (B6) [Melatonin 3 mg Tablet] 3 mg PO HS 06/25/15 [ History] Metoprolol Tartrate [Lopressor] 25 mg PO BID 06/25/15 [History] Paroxetine [Paxil] 40 mg PO QAM 06/25/15 [History] Simvastatin [Zocor] 40 mg PO QPM 06/25/15 [History] Tizanidine HCl [Zanaflex] 4 mg PO TID 06/25/15 [History] metFORMIN [Glucophage] 1,000 mg PO BID 06/25/15 [History] Albuterol Sulfate [Albuterol Inhaler] 2 puff IH QID 2 Days inhaler 02/26/16 [Rx ] Gabapentin [Neurontin] 300 mg PO TID 03/10/17 [History] Glimepiride [Amaryl] 1 mg PO DAILY 03/10/17 [History] Isosorbide MONOnitrate (24 HR) [Imdur] 30 mg PO DAILY 03/10/17 [History] Oxygen 4 l .ROUTE AD 03/10/17 [History] rOPINIRole [Requip] 1.5 mg PO HS 03/10/17 [History] Nitroglycerin 0.4 mg SL Q5MIN PRN #40 tab.subl 03/12/17 [Rx] Omeprazole Magnesium [Prilosec Otc] 20 mg PO DAILY #30 tablet.dr 03/12/17 [Rx] Isosorbide MONOnitrate (24 HR) [Imdur] 60 mg PO DAILY #30 tab.er.24h 03/13/17 [ Rx] 3 Allergy/AdvReac Type Severity Reaction Status Date / Time No Known Allergies Allergy Verified 05/29/15 11:15 All Systems Review: A 10-system review of systems was performed and is negative for pertinent findings except as documented above in the HPI. - Constitutional Constitutional: no headache(s) - EENT Eyes: no blurred vision - Cardiovascular Cardiovascular: as per HPI - Respiratory Respiratory: no cough - Gastrointestinal Gastrointestinal: no abdominal pain - Genitourinary Genitourinary: no dysuria - Integumentary Integumentary: no erythema - Neurological Neurological: no abnormal speech Physical Examination General: Conversant, No Apparent Distress, Other (sitting up in chair at bedside ) HEENT: Atraumatic, Normocephaly, Mucus Membranes Moist Neck: No JVD, Normal carotid pulses Cardiac: Reg Rate and Rhythm, Normal S1 and S2, No Murmur Lungs: Normal Breath Sounds, No Wheeze, Rales, Rhonchi Neuro: Alert and responsive, No focal deficits noted Abdomen: Soft, Non-Tender Skin: No rashes noted on visualized skin Musculoskeletal: No Chest Wall Tenderness Extremities: No Clubbing, No Cyanosis, No Edema, Normal Pulses Results 03/11/17 03:57 03/11/17 03:57 - Imaging and Cardiology Chest Xray: report reviewed Stress Test: report reviewed Echo: report reviewed Cardiac cath: report reviewed - EKG Interpretation EKG results cardiology: personally reviewed, no diagnostic ischemia Consult Discharge Plan - Plan Instructions: Coronary Artery Disease (DC), Diabetes Mellitus Type 2 in Adults (DC), Chronic Hypertension (DC) Additional Instructions: Please call your family care doctor within 24 hours her next business day to schedule follow-up appointment within 1-2 weeks. Please follow-up with your crm administrator within 2-4 weeks. Return to the emergency room if chest pain or shortness of breath recurs. [facility] [place] [facility] [facility] [place] - Prescriptions: Nitroglycerin 0.4 mg SL Q5MIN PRN #40 tab.subl PRN Reason: Chest Pain Isosorbide MONOnitrate (24 HR) [Imdur] 60 mg PO DAILY #30 tab.er.24h Omeprazole Magnesium [Prilosec Otc] 20 mg PO DAILY #30 tablet. <Masha Bagley - Last Filed: 03/13/17 18:24> Date of Encounter: 03/13/17 - Attending Attestation I examined this patient and my medical decision-making was reviewed with the Resident Physician. I agree with the documented findings, disposition and treatment plan. Mr. Galdamez presented with an episode of chest pain that occurred while getting out of bed. His troponins were negative and there were no ischemic ECG changes on chest x-ray. He had an echo demonstrating normal LV systolic function. He underwent nuclear stress testing demonstrating an inferior wall defect. This defect was also seen in 2014 during stress testing which prompted a left heart catheterization. 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 The present study demonstrates similar findings to the test performed at that time. Other coronary anatomy demonstrated nonobstructive CAD not intervened upon. I discussed these findings with the patient and his . 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 The patient and expressed understanding and agreed with the plan of care. He will continue with risk reduction efforts and medical therapy. Will uptitrate imdur. Follow- up as outpatient. Assessment and Plan Discussion w patient/family: The assessment and plan as outlined above was discussed with the patient and/or family members who expressed understanding and agreement. All questions were answered. Thank you for involving us in the care of your patient. Please call with any questions. History of Present Illness History of present illness: Mr. Galdamez is a 67 year old male All Systems Review: A 10-system review of systems was performed and is negative for pertinent findings except as documented above in the HPI. Physical Examination Vital Signs, Last 4 Hours Pulse Resp BP Pulse Ox 03/13/17 15:52 59 16 157/94 92 Results 03/11/17 03:57 03/11/17 03:57
[2017-03-13 15:53] VITALS: BP 157/94
[2017-03-13] MEDS ORDERED: Isosorbide MONOnitrate (24 HR) 60 MG TAB.ER.24H PO SCH (16:15)
--- NOTE | 2017-03-13 17:07 | Discharge Summary ---
Date of Encounter: 03/13/17 Time of Encounter: 17:00 - Discharge Diagnosis (1) Coronary artery disease Priority: Primary Status: Acute Comments: Caio Galdamez is a 67-year-old male with past medical history CAD, hypertension, diabetes and COPD who presented to [facility] on 03/12/2017 with complaints of chest pain. He was evaluated by cardiology who recommended medical management. He was discharged home on 03/13/2017 in stable condition with outpatient follow-up. 1. CAD: per hx. presented with chest pain that started on day of arrival. Chest pain resolved spontaneously. Serial troponins negative, EKG without acute ST changes. ECHO: EF 65%, normal LV and RV, normal atria, trace AR and TR and mild calcified aortic valve leaflets. 03/13/2017 stress test with medium size, mild intensity mostly reversible inferior and inferior lateral defect area. Discussed with Dr. Bagley and defect noted on stress test correlates with known lesion on 11/2014 [facility]. Nitrate increased. Continue ASA, Plavix, statin, BB. Will need to follow-up with cardiology outpatient. 2. COPD: Per history. Wears O2 at 4 liters at home. No increased oxygen needs , no evidence of exacerbation. Continue home inhaler 3. Diabetes: Per history. Continue home diabetes medication regimen 4. Hypertension: Per history. BP controlled. Continue home BP medication. Qualifiers: Coronary Disease-Associated Artery/Lesion type: [place] artery [place] vs. transplanted heart: [place] heart Associated angina: with stable angina Qualified Code(s): I25.118 - Atherosclerotic heart disease of [place] coronary artery with other forms of angina pectoris (2) Chronic respiratory failure Priority: Secondary Status: Acute Qualifiers: Respiratory failure complication: hypoxia Qualified Code(s): J96.11 - Chronic respiratory failure with hypoxia (3) Diabetes Priority: Primary Status: Chronic Qualifiers: Diabetes mellitus type: type 2 Diabetes mellitus complication status: without complication Diabetes mellitus local [employer] insulin use: unspecified [place] insulin use status Qualified Code(s): E11.9 - Type 2 diabetes mellitus without complications (4) Hypertension Priority: Primary Status: Acute Qualifiers: Hypertension type: essential hypertension Qualified Code(s): I10 - Essential (primary) hypertension - Discharge Medications Prescriptions: Nitroglycerin 0.4 mg SL Q5MIN PRN #40 tab.subl PRN Reason: Chest Pain Isosorbide MONOnitrate (24 HR) [Imdur] 60 mg PO DAILY #30 tab.er.24h Omeprazole Magnesium [Prilosec Otc] 20 mg PO DAILY #30 tablet. Home Medications: Aspirin [Adult Low Dose Aspirin EC] 81 mg PO DAILY 06/25/15 [History] Cetirizine HCl [Zyrtec] 10 mg PO DAILY 06/25/15 [History] Clopidogrel [Plavix] 75 mg PO DAILY 06/25/15 [History] Doxepin [Sinequan] 25 mg PO HS 06/25/15 [History] Ferrous Sulfate 325 mg PO BID 06/25/15 [History] Melatonin/Pyridoxine HCl (B6) [Melatonin 3 mg Tablet] 3 mg PO HS 06/25/15 [ History] Metoprolol Tartrate [Lopressor] 25 mg PO BID 06/25/15 [History] Paroxetine [Paxil] 40 mg PO QAM 06/25/15 [History] Simvastatin [Zocor] 40 mg PO QPM 06/25/15 [History] Tizanidine HCl [Zanaflex] 4 mg PO TID 06/25/15 [History] metFORMIN [Glucophage] 1,000 mg PO BID 06/25/15 [History] Albuterol Sulfate [Albuterol Inhaler] 2 puff IH QID 2 Days inhaler 02/26/16 [Rx ] Gabapentin [Neurontin] 300 mg PO TID 03/10/17 [History] Glimepiride [Amaryl] 1 mg PO DAILY 03/10/17 [History] Isosorbide MONOnitrate (24 HR) [Imdur] 30 mg PO DAILY 03/10/17 [History] Oxygen 4 l .ROUTE AD 03/10/17 [History] rOPINIRole [Requip] 1.5 mg PO HS 03/10/17 [History] Nitroglycerin 0.4 mg SL Q5MIN PRN #40 tab.subl 03/12/17 [Rx] Omeprazole Magnesium [Prilosec Otc] 20 mg PO DAILY #30 tablet.dr 03/12/17 [Rx] Isosorbide MONOnitrate (24 HR) [Imdur] 60 mg PO DAILY #30 tab.er.24h 03/13/17 [ Rx] Allergies/Adverse Reactions: 3 Allergy/AdvReac Type Severity Reaction Status Date / Time No Known Allergies Allergy Verified 05/29/15 11:15 Procedures/tests Complete & Pending: Procedures Performed prior 72 hours Category Date Time Status NM irving perf SPECT multi [NM] Routine Exams 03/12/17 07:00 Taken EV echocardiogram Routine Y 03/11/17 10:59 Completed SP pharm nuclear stress Routine Y 03/12/17 07:00 Completed Date of admission: 03/10/17 10:26 Primary care physician: Alex Guthrie MD Consults: 03/13/17 09:34 Consult to Cardiology [CONS] Routine Comment: Consulting Provider: Cardiology [facility] Reason for Consult: abnormal stress test Call Completed: Yes Discharging clinician: Billie Solano Anticipated date of discharge: 03/13/17 - Patient Status Disposition: Home, Self-Care Condition: Good Functional capacity at discharge: independent ambulation Overall status at discharge: patient is back to baseline - Discharge Instructions Instructions: Diabetes Mellitus Type 2 in Adults (DC), Chronic Hypertension (DC ), Coronary Artery Disease (DC) Follow Up With: Alex Guthrie MD [Primary Care Provider] - Additional Instructions: Please call your family care doctor within 24 hours her next business day to schedule follow-up appointment within 1-2 weeks. 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 Return to the emergency room if chest pain or shortness of breath recurs. - Diet and Activity Activity: increase activity as tolerated Diet: diabetic diet, low fat, low cholesterol Interval History: Seen and examined at bedside. Patient is new to me, information obtained from chart review and patient report. Patient says he feels better, back to baseline. Denies chest pain, no shortness of breath. He is aware of abnormal stress test. He was advised to return to ER if chest pain, shortness of breath recurred or worsened as the possibility of left heart catheterization is not completely off the table however we will trial increasing nitrates at this time. Patient is agreeable verbalized understanding. Hospital course: See assessment and plan for hospital coarse - Time Spent with Patient Total time spent providing and/or coordinating discharge services: - Constitutional Vitals: Temp Pulse Resp BP Pulse Ox 97.9 F 59 16 157/94 92 03/13/17 11:31 03/13/17 15:52 03/13/17 15:52 03/13/17 15:52 03/13/17 15:52 General appearance: Present: A&O X 3, pleasant, no acute distress, answers questions appropriately - Head Head exam: Present: atraumatic, normocephalic - Eye Eye exam: Present: PERRL, conjuntiva pink, sclera anicteric Pupils: Present: PERRL - Neck Neck exam general surgery: Present: supple, trachea midline. Absent: lymphadenopathy - Respiratory Respiratory exam: Present: CTAB. Absent: accessory muscle use, rales, rhonchi, wheezes - Cardiovascular Cardiovascular exam: Present: RRR, +S1, +S2. Absent: diastolic murmur, gallop, rubs, systolic murmur - GI/Abdominal GI/Abdominal exam: Present: normal bowel sounds, soft, no peritoneal signs. Absent: distended, tenderness - Extremities Exam Extremities exam: Present: warm, radial pulses palpable and symmetrical. Absent : calf tenderness, cyanotic, pedal edema - Neurological Exam Neurological exam: Present: CN II-XII intact, oriented X3, no focal deficits. Absent: pronater drift, facial droop, speech deficit - Skin Skin exam: Present: dry, intact
== END 2017-03-13 18:12 | disposition home or self-care (01) ==
LOC: 3BNU 09:10 → EMEROO 09:10 → 3BNU 11:18
PROVIDERS: ADMIT Registered Nurse; ATTEND Registered Nurse

== ENCOUNTER 2021-03-28 11:43 | Observation (INO) ==
[2021-03-28] MEDS ORDERED: Ondansetron ODT 4 MG TAB.RAPDIS SL ONE (13:15)
[2021-03-28] MEDS ORDERED: 0.9 % Sodium Chloride 1,000 ML IVC ONE (13:19)
[2021-03-28 13:47] LABS: Basophils # 0.1 K/mcL (0.0-0.2); Basophils % 1.2 %; Eosinophils % 0.2 %; Hematocrit 42.8 % (37.5-50.1); Hemoglobin 13.4 g/dL (12.9-16.9); Immature Granulocytes % 0.8 % (0-4); Lymphocytes # 1.1 K/mcL (0.6-4.6); Lymphocytes % 12.5 %; Mean Corpuscular HGB Conc 31.3 g/dL (31.6-35.5); Mean Corpuscular Hemoglobin 26.9 pg (28.0-33.3); Mean Corpuscular Volume 85.8 fL (83.0-100.0); Mean Platelet Volume 9.9 fL (9.4-12.4); Monocytes # 0.3 K/mcL (0.0-1.3); Monocytes % 3.1 %; Platelet Count 284 K/mcL (140-400); Red Blood Count 4.99 M/mcL (4.19-5.50); Red Cell Distribution Width 13.8 % (11.5-14.5); Segmented Neutrophils % 82.2 %; White Blood Count 8.5 K/mcL (4.3-11.1)
[2021-03-28 14:26] LABS: Alanine Aminotransferase 15 Units/L (7-52); Albumin 4.4 g/dL (3.5-5.7); Albumin/Globulin Ratio 1.5 (1.1-2.2); Alkaline Phosphatase 56 Units/L (34-104); Aspartate Amino Transferase 18 Units/L (13-39); BUN/Creatinine Ratio 11 (6-26); Bilirubin,Direct 0.2 mg/dL (0.0-0.2); Bilirubin,Indirect 0.6 mg/dL (0.0-1.0); Bilirubin,Total 0.8 mg/dL (0.3-1.0); Blood Urea Nitrogen 21 mg/dL (8-23); Calcium 10.2 mg/dL (8.6-10.3); Carbon Dioxide 23 mEq/L (23-29); Chloride 101 mEq/L (98-107); Globulin 2.9 g/dL (2.4-3.5); Glucose 141 mg/dL (70-105); Lipase 19 Units/L (11-82); Osmolality,Calculated 285 (280-300); Potassium 4.7 mEq/L (3.5-5.1); Sodium 135 mEq/L (136-145); Total Protein 7.3 g/dL (6.4-8.9); Troponin I < 0.03 ng/mL (< 0.04); eGFR For African Americans 42 (> 60); eGFR For Non-African Americans 34 (> 60)
[2021-03-28] MEDS ORDERED: Naloxone 0.4 MG/ML INJ IVP PRN (15:53)
[2021-03-28] MEDS ORDERED: Ondansetron 4 MG/2 ML VIAL IVP PRN (16:17)
[2021-03-28 16:23] LABS: Adenovirus Not Detected (Not Detect); Bordetella Pertussis Not Detected (Not Detect); Chlamydophila pneumoniae Not Detected (Not Detect); Coronavirus 229E Not Detected (Not Detect); Coronavirus HKU1 Not Detected (Not Detect); Coronavirus NL63 Not Detected (Not Detect); Coronavirus OC43 Not Detected (Not Detect); Human Metapneumovirus Not Detected (Not Detect); Human Rhinovirus/Enterovirus Not Detected (Not Detect); Influenza A Subtype 2009 H1 Not Detected (Not Detect); Influenza B Not Detected (Not Detect); Mycoplasma pneumoniae Not Detected (Not Detect); Parainfluenza Virus 1 Not Detected (Not Detect); Parainfluenza Virus 2 Not Detected (Not Detect); Parainfluenza Virus 3 Not Detected (Not Detect); Parainfluenza Virus 4 Not Detected (Not Detect); Respiratory Syncytial Virus Not Detected (Not Detect); SARS-CoV-2 Not Detected (Not Detect)
[2021-03-28] MEDS: 0.9 % Sodium Chloride 1,000 ML IVC SCH (20:58)
[2021-03-28] MEDS: *HR* Heparin 5,000 UNIT/ML VIAL SQ SCH (21:03)
[2021-03-28] MEDS: Aspirin Enteric Coated 81 MG Tablet PO SCH (21:04)
[2021-03-29 03:33] LABS: Calcium 9.1 mg/dL (8.6-10.3); Potassium 3.7 mEq/L (3.5-5.1)
[2021-03-29] MEDS: 0.9 % Sodium Chloride 1,000 ML IVC SCH ×2 (04:18→11:19)
[2021-03-29] MEDS: *HR* Heparin 5,000 UNIT/ML VIAL SQ SCH ×2 (06:02→14:56)
[2021-03-29 06:46] LABS: Bilirubin,Urine Negative (Negative); Blood,Urine Negative (Negative); Clarity,Urine Clear (Clear); Color,Urine Colorless (Yellow); Glucose,Urine (UA) Normal (Normal); Ketones,Urine Negative (Negative); Leukocyte Esterase,Urine Negative (Negative); Nitrite,Urine Negative (Negative); PH,Urine 5.5 pH Units (5.0-8.0); Protein,Urine Negative (Neg-Trace); Specific Gravity,Urine 1.007 (1.010-1.025); Urobilinogen,Urine Normal (Normal)
[2021-03-29] MEDS: Aspirin Enteric Coated 81 MG Tablet PO SCH (09:39)
[2021-03-29 09:59] LABS: Amphetamine Screen,Urine Negative ng/mL (Cutoff=1000); Barbiturate Screen,Urine Negative ng/mL (Cutoff=200); Benzodiazepines Screen,Urine Negative ng/mL (Cutoff=200); Cannabinoid Screen,Urine Negative ng/mL (Cutoff = 50); Cocaine Screen,Urine Negative ng/mL (Cutoff= 300); Opiate Screen,Urine Negative ng/mL (Cutoff=300); Phencyclidine Screen,Urine Negative ng/mL (Cutoff=25)
[2021-03-29 10:42] VITALS: O2SAT 95
[2021-03-29 11:00] VITALS: BP 126/65; PULSE 65; TEMP 97.6
== END 2021-03-29 15:09 | disposition home or self-care (01) ==
LOC: EMEROOARM 11:43 → 3ANU 11:43 → SUATTDRO 15:49 → 3ANU 17:20
PROVIDERS: ADMIT Internal Medicine; ATTEND Internal Medicine